=== PATIENT | female | born 1950 | race Hispanic/Latino ===

== ENCOUNTER 2024-06-05 22:45 | Emergency (ER) | payer OTHER ==
[~2024-06-05] VITALS: Ht 152.4 cm; Wt 61.2 kg
[~2024-06-05 22:45] MED LIST: IOHEXOL 350 MG/ML 100ML INFUS..BTL IV ONE; PoTASSium chloRIDE 20MEQ ER 20 MEQ ERTAB PO ONE
[2024-06-05 23:16] VITALS: TEMP 99.1
--- NOTE | 2024-06-05 23:28 | ERN ---
ED Note History of Present Illness Stated Complaint: POST SX INFECTION Chief Complaint: Post-Op Problem Time Seen by MD: 22:52 Dictation: The patient is a 73-year-old female patient with a medical history that includes type 2 diabetes mellitus, hypercholesterolemia, and hypertension presented to the emergency department with complaints of cramping sensations at the surgical site. The patient underwent bladder lift surgery on May 15, 2024, performed by Dr. Lynn at [facility]. Following the procedure, she experienced abdominal pain the subsequent day, and found to have a postoperative hemorrhage requiring a blood transfusion. She was hospitalized for nearly two weeks and was discharged on May 29 with prescriptions for oral amoxicillin and nitrofurantoin. Today, she reported a return of cramping sensations at the surgical site. According to her granddaughter, the wound appeared to be healing; however, it now seems to show signs of infection. The patient denies experiencing abdominal pain, discharge, fever, or chills but does report urinary urgency. Allergies: Coded Allergies: No Known Allergies (Unverified Allergy, Unknown, 06/05/24) Past Medical History Past Medical History: Diabetes-Type II, High Cholesterol, Hypertension Surgical History: Hysterectomy, Review of System Dictation REVIEW OF SYSTEMS CONSTITUTIONAL: Denies fevers, chills, or night sweats. No unintentional weight loss reported. NEUROLOGICAL: Denies headache, amaurosis fugax, motor weakness, sensory deficit, vertigo/spinning sensation, gait abnormalities, or tremors. ENT: No hearing loss, otalgia, otorrhea, rhinitis, rhinorrhea, hoarseness, or sore throat. CARDIOVASCULAR: Denies any exertional angina, dyspnea on exertion, orthopnea, paroxysmal nocturnal dyspnea, palpitations, life-threatening arrhythmias, claudication. PULMONARY: Denies any shortness of breath, cough, phlegm/sputum, hemoptysis, pleuritic chest pain. SLEEP: Denies morning headaches, daytime somnolence or napping. Denies difficulty falling asleep, staying asleep, waking from sleep. Denies knowledge of snoring. GASTROINTESTINAL: Complaints of cramping sensation over the surgical site, Denies any type of dysphagia to either liquids or solids. Denies nausea, vomiting, pyrosis, early satiety, abdominal pain, diarrhea, constipation, or changes in stool consistency or caliber. Denies coffee-ground emesis, hematemesis, hematochezia, or melanotic stools. GENITOURINARY: Denies frequency, urgency, nocturia, hematuria or incontinence (Storage/Irritative symptoms.) Low urinary stream, straining to void, urinary intermittency or hesitancy, splitting of the voiding stream, terminal dribbling. ENDOCRINOLOGIC: Denies polyuria, polydipsia, polyphagia or heat/cold intolerances. HEMATOLOGIC: Denies thrombophilia/previous clots, or coagulopathy/bleeding disorders. ONCOLOGIC: Denies personal history of malignancy. DERMATOLOGIC: Denies rashes or pruritus. PSYCHIATRIC: Denies any suicidal or homicidal ideation. Denies hallucinations. Initial Vital Sign VS Vital Signs Date Time Temp Pulse Resp B/P (MAP) Pulse Ox O2 Delivery O2 Flow Rate FiO2 06/05/24 22:46 99.1 87 18 118/81 98 Room Air 06/05/24 23:16 0 21 Physical Exam Dictation PHYSICAL EXAM GENERAL APPEARANCE: The patient is awake, alert, and oriented, in no acute cardiopulmonary distress. NEUROLOGICAL: Cranial nerves II-XII grossly intact. Motor is 5/5 in bilateral upper and lower extremities proximal to distal. No sensory deficits. HEENT: Face is symmetric. Pupils are equal and reactive. Extraocular movements are intact. NECK: Supple. No JVD. No thyromegaly. No submental, submandibular, pre- /postauricular, occipital or supraclavicular lymphadenopathy. CHEST: Normal chest expansion. No Telemetry. LUNGS: Absence of any rales, rhonchi or any wheezing. CARDIOVASCULAR: Regular. S1 and S2 normal. No appreciable rubs, murmurs or gallops. ABDOMEN: A surgical wound scab is observed beneath the umbilicus, with the surrounding area exhibiting signs of erythema, Soft, and nondistended. There is no rebound, voluntary guarding, or rigidity. : Deferred. No Erwin. EXTREMITIES: Non-edematous and not cyanotic. No clubbing. Good capillary refill. SKIN: No skin breakdown. Results (Laboratory/Radiology) Laboratory/Radiology Laboratory Tests Test 06/05/24 23:15 06/05/24 23:47 06/06/24 01:03 White Blood Count 6.0 K/uL (4.8-10.8) Red Blood Count 3.63 MIL/uL (4.00-5.50) L Hemoglobin 10.9 g/dL (12.0-16.0) L Hematocrit 33.2 % (36-48) L Mean Corpuscular Volume 91.5 fL (79-99) Mean Corpuscular Hemoglobin 30.0 pg (27.0-33.0) Mean Corpuscular Hemoglobin Concent 32.8 g/dL (32.0-36.0) Red Cell Distribution Width 16.5 % (11.0-15.5) H Platelet Count 362 K/uL (130-400) Mean Platelet Volume 8.2 fL (7.5-10.5) Immature Granulocyte % (Auto) 0.5 % (0-1) Neutrophils (%) (Auto) 53.2 % (40.0-77.0) Lymphocytes (%) (Auto) 34.1 % (21.0-51.0) Monocytes (%) (Auto) 8.2 % (3.0-13.0) Eosinophils (%) (Auto) 3.5 % (0.0-8.0) Basophils (%) (Auto) 0.5 % (0.0-5.0) Neutrophils # (Auto) 3.2 K/uL (1.8-7.7) Lymphocytes # (Auto) 2.0 K/uL (1.0-4.8) Monocytes # (Auto) 0.5 K/uL (0.1-1.0) Eosinophils # (Auto) 0.21 K/uL (0.00-0.70) Basophils # (Auto) 0.03 K/uL (0.00-0.20) Absolute Immature Granulocyte (auto 0.03 K/uL (0-1) Nucleated Red Blood Cells 0.0 % (0.0-0.19) Sodium Level 139 mmol/L (136-145) Potassium Level 3.3 mmol/L (3.5-5.1) L Chloride Level 104 mmol/L (101-111) Carbon Dioxide Level 27 mmol/L (21-32) Blood Urea Nitrogen 10 mg/dL (7-18) Creatinine 0.9 mg/dL (0.5-1.0) Glomerular Filtration Rate Calc 67 mL/min (>90) Random Glucose 119 mg/dL (70-105) H Lactic Acid Level 1.9 mmol/L (0.8-2.5) Total Calcium 8.7 mg/dL (8.5-10.1) Total Bilirubin 0.3 mg/dL (0.2-1.0) Direct Bilirubin 0.1 mg/dL (0.0-0.3) Aspartate Amino Transf (AST/SGOT) 61 U/L (10-37) H Alanine Aminotransferase (ALT/SGPT) 55 U/L (12-78) Alkaline Phosphatase 90 U/L (50-136) C-Reactive Protein, Quantitative < 0.50 mg/L (0.5-3.0) L Total Protein 6.3 g/dL (6.0-8.3) Albumin 2.7 g/dL (3.5-5.0) L Erythrocyte Sedimentation Rate 97 MM/HR (0-30) H Urine Color COLORLESS (YELLOW) Urine Appearance CLEAR (CLEAR) Urine pH 5.5 (5.0-8.0) Urine Specific [place] 1.030 (1.001-1.031) Urine Protein NEGATIVE mg/dL (NEGATIVE) Urine Glucose (UA) NEGATIVE mg/dL (NEGATIVE) Urine Ketones NEGATIVE mg/dL (NEGATIVE) Urine Occult Blood MODERATE (NEGATIVE) H Urine Nitrate NEGATIVE (NEGATIVE) Urine Bilirubin NEGATIVE mg/dL (NEGATIVE) Urine Urobilinogen 0.2 mg/dL (0.2-1.0) Urine Leukocyte Esterase 250 Sirisha/uL (NEGATIVE) H Urine RBC 2-5 /HPF (0-1) H Urine WBC 11-25 /HPF (0-1) H Urine Squamous Epithelial Cells RARE /HPF (0-2) Urine Bacteria FEW /HPF (None Seen) CT Scan Comment: [address] [id number] [place] [address] IMAGING REPORT Signed PATIENT: KELSY CANTU MR#: [id number] : 1950 SEX: F AGE: 73 LOCATION: [facility] ORDER 21 STATUS: REG ER REPORT#: [id number] SERVICE 17 REASON: H/o explo laparotomy, Pain over the surgical site ORDERING PHYSICIAN: TAD HERRERA MD PROCEDURE: ABD PEL W - CT ABDOMEN/PELVIS W/CONTRAST CT ABDOMEN/PELVIS W/CONTRAST HISTORY: Pain COMPARISON: None TECHNIQUE: Multiple sequential axial images of the abdomen and pelvis were obtained from the dome of the diaphragm through symphysis pubis. Patient was given 75 cc of Omnipaque through intravenous route. Oral contrast was not given. FINDINGS: No pleural effusion is seen bilaterally. There is no evidence of parenchymal disease or pulmonary nodule of the visualized lower lungs. Degenerative changes of the thoracolumbar spine are present. The heart is not enlarged. The liver measures 15 cm. Gallbladder is distended. 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 There is periumbilical hernia with fat content with fat stranding may be related to incarcerated hernia. There is fluid collection noted in this area measuring 18 x 49 mm may be related to subcutaneous abscess versus seroma. Minimal small bowel dilatation is seen with fluid-filled. There is diverticulosis. Mesenteric fat stranding is seen. Findings may be related to postop changes. The liver, spleen, adrenal glands and pancreas are unremarkable. There is no evidence of hydronephrosis bilaterally. No evidence of renal stone is seen. There are small bilateral renal cysts. Fecal material is seen in the colon. There are normal size retroperitoneal and mesenteric lymph nodes. No ascites is seen. Atherosclerotic changes are present. There is fluid-filled colon. Appendix is not well seen limiting evaluation. Pelvic sidewalls are symmetric bilaterally. Bladder is well distended without wall thickening. IMPRESSION: 1. Gallbladder is distended. 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 There is periumbilical hernia with fat content with fat stranding may be related to incarcerated hernia. There is fluid collection noted in this area measuring 18 x 49 mm may be related to subcutaneous abscess versus seroma. Minimal small bowel dilatation is seen with fluid-filled. There is diverticulosis. Mesenteric fat stranding is seen. Findings may be related to postop changes. CT was performed with one or more following dose reduction techniques: automated exposure control, adjustment of the mA and kv according to patient's size, or use of a iterative reconstruction technique. DICTATED BY: THOMAS WOO MD DATE: 06/06/2452 ELECTRONICALLY SIGNED BY: THOMAS WOO MD DATE: 06/06/2458 ED Course ED Course Orders Procedure Category Date Status Time Cbc With Differential LAB 06/05/24 Complete 23:10 Basic Metabolic Panel LAB 06/05/24 Complete 23:10 Urinalysis Profile LAB 06/05/24 Complete 23:10 Lactic Acid LAB 06/05/24 Complete 23:10 Morphine 2mg Syg PHA 06/05/24 Complete (Morphine 2mg Syg) 23:30 Crp Quantitative LAB 06/05/24 Complete 23:18 Erythrocyte LAB 06/05/24 Complete Sedimentation Rate 23:18 Hepatic Function Panel LAB 06/05/24 Complete 23:18 Ct Abdomen/Pelvis CT 06/05/24 Resulted W/Contrast 23:18 Potassium Chloride PHA 06/06/24 Complete 20meq Er (K-Dur/Klor- 00:30 Iohexol (Omnipaque) PHA 06/06/24 Complete 00:26 Culture Urine ROMY 06/06/24 In Process 01:19 Current Medications Medications (Trade) Dose Ordered Sig/Cristi Route PRN Reason Start Time Stop Time Status Last Admin Dose Admin Iohexol (Omnipaque) 35,000 mg STK-MED ONCE IV 06/06/24 00:26 06/06/24 00:27 DC Morphine Sulfate (morPHINE 2MG SYG) 2 mg ONCE ONCE IVP 06/05/24 23:30 06/05/24 23:31 DC Potassium Chloride (K-Dur/Klor-Con 20meq) 20 meq ONCE ONCE PO 06/06/24 00:30 06/06/24 00:31 DC 06/06/24 00:17 Vital Signs Date Time Temp Pulse Resp B/P (MAP) Pulse Ox O2 Delivery O2 Flow Rate FiO2 06/05/24 23:16 99.1 70 16 139/68 95 Room Air* 0 21 06/05/24 22:46 99.1 87 18 118/81 98 Room Air 11:00 The patient was assessed in the emergency department and presented with signs of mild distress. Her current vital signs are as follows: temperature 99.1F, pulse rate 87 beats per minute, respiratory rate 18 breaths per minute, and blood pressure 118/81 mmHg. During the physical examination, a black scab was observed over the surgical site located below the umbilicus. A small amount of serous discharge was noted from the wound, and the surrounding area exhibited slight erythema. We will proceed with ordering basic laboratory tests and a CT scan of the abdomen to exclude any potential infectious processes. Once the laboratory results and imaging studies are available, we will determine whether the patient requires any emergency interventions or inpatient care. Continuous monitoring of the patient will be maintained. 02:00 Laboratory results did not indicate any notable abnormalities. A CT scan of the abdomen and pelvis revealed a fluid collection in the region measuring 18 x 49 mm, which may be associated with either a subcutaneous abscess or a seroma. Considering the clinical observations, it is our assessment that the patient may be experiencing a serous collection, likely a postoperative change. The patient has been prescribed Augmentin to mitigate the risk of infection, and nitrofurantoin has been recommended for a urinary tract infection. She has been advised to complete the full course of antibiotics. An appointment with Dr. Lynn is scheduled for tomorrow. At this juncture, we do not believe that the patient necessitates emergency intervention or inpatient care. The patient is deemed fit for discharge to her home. Medical Decision Making [facility] Differential diagnosis: Seroma, post operative, Urinary tract infection Rationale: Tests considered and ordered secondary to shared decision making include: Previous outside records reviewed: Old ER visits. Risk of complication and/or morbidity or mortality of patient management: None Medications-Per medication reconciliation Need for hospitalization: Patient does not meet criteria for hospitalization. Need for emergency major/minor surgery: No There are no social concerns with this patient. Prescription drug management Prescriptions will include symptomatic care Patient's prior external medical records from other ER visits were reviewed by me as indicated. Prior testing and results from previous visits were reviewed. Prior tests were taken into account with medical decision making and resource utilization, independent historian/historians were used to obtain complete medical history. I independently interpreted the test that were performed, results were reviewed by me and considered findings on radiology if ordered. DX & DISP Disposition: Discharge Departure Impression: Primary Impression: Seroma, postoperative Additional Impression: UTI (urinary tract infection) Condition: Stable Additional Instructions: Continue taking Augmentin as prescribed by your medical provider. Continue taking Nitrofurantoin for UTI as directed. Drink fluids: Drink lots of water to dilute your urine and flush out bacteria. Avoid drinks that contain caffeine or citrus juices, which can irritate the bladder. Urinate often: Try to empty your bladder each time you feel the urge. Visit the nearest emergency department or call 911 should the symptoms get worse or reappears. Referrals: NONE (PCP) I have reviewed the case, and I agree with, Diagnosis and Plan I have examined patient, & reviewed all documents, & agreed W/ the Diagnosis, and Plan I performed a substantive portion of the visit. I have reviewed and personally made and approve the management plan that is documented in the notes by myself with BERNARDINO/resident. I acknowledged full responsibility for the patient's management plan. TAD HERRERA MD Jun 05, 2024 23:28 ELLEN FRENCH DO Jun 06, 2024 02:21
[2024-06-05 23:47] LABS: BASOPHILS # (AUTO) 0.03 K/uL (0.00-0.20); BASOPHILS % (AUTO) 0.5 % (0.0-5.0); EOSINOPHILS # (AUTO) 0.21 K/uL (0.00-0.70); EOSINOPHILS % (AUTO) 3.5 % (0.0-8.0); HEMATOCRIT 33.2 % (36-48); IMMATURE GRANULOCYTE ABSOLUTE 0.03 K/uL (0-1); LYMPHOCYTES % (AUTO) 34.1 % (21.0-51.0); MEAN CORPUSCULAR HGB CONC 32.8 g/dL (32.0-36.0); MEAN CORPUSCULAR VOLUME 91.5 fL (79-99); MONOCYTES # (AUTO) 0.5 K/uL (0.1-1.0); MONOCYTES % (AUTO) 8.2 % (3.0-13.0); NEUTROPHILS # (AUTO) 3.2 K/uL (1.8-7.7); NEUTROPHILS % (AUTO) 53.2 % (40.0-77.0); PLATELET COUNT (AUTO) 362 K/uL (130-400); RED BLOOD CELL COUNT(AUTO) 3.63 MIL/uL (4.00-5.50); RED CELL DISTRIBUTION WIDTH 16.5 % (11.0-15.5)
[2024-06-05 23:58] LABS: CREATININE 0.9 mg/dL (0.5-1.0); POTASSIUM 3.3 mmol/L (3.5-5.1)
[2024-06-06 00:04] LABS: ALANINE AMINOTRANSFERASE 55 U/L (12-78); ALBUMIN 2.7 g/dL (3.5-5.0); ASPARTATE AMINOTRANSFERASE 61 U/L (10-37); BILIRUBIN,DIRECT 0.1 mg/dL (0.0-0.3); BILIRUBIN,TOTAL 0.3 mg/dL (0.2-1.0); TOTAL PROTEIN, SERUM 6.3 g/dL (6.0-8.3)
[2024-06-06] MEDS: PoTASSium chloRIDE 20MEQ ER 20 MEQ ERTAB PO ONE (00:17)
[2024-06-06] MEDS ORDERED: IOHEXOL 350 MG/ML 100ML INFUS..BTL IV ONE (00:26)
--- NOTE | 2024-06-06 00:59 | HMCIMG ---
CT ABDOMEN/PELVIS W/CONTRAST HISTORY: Pain COMPARISON: None TECHNIQUE: Multiple sequential axial images of the abdomen and pelvis were obtained from the dome of the diaphragm through symphysis pubis. Patient was given 75 cc of Omnipaque through intravenous route. Oral contrast was not given. FINDINGS: No pleural effusion is seen bilaterally. There is no evidence of parenchymal disease or pulmonary nodule of the visualized lower lungs. Degenerative changes of the thoracolumbar spine are present. The heart is not enlarged. The liver measures 15 cm. Gallbladder is distended. 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 There is periumbilical hernia with fat content with fat stranding may be related to incarcerated hernia. There is fluid collection noted in this area measuring 18 x 49 mm may be related to subcutaneous abscess versus seroma. Minimal small bowel dilatation is seen with fluid-filled. There is diverticulosis. Mesenteric fat stranding is seen. Findings may be related to postop changes. The liver, spleen, adrenal glands and pancreas are unremarkable. There is no evidence of hydronephrosis bilaterally. No evidence of renal stone is seen. There are small bilateral renal cysts. Fecal material is seen in the colon. There are normal size retroperitoneal and mesenteric lymph nodes. No ascites is seen. Atherosclerotic changes are present. There is fluid-filled colon. Appendix is not well seen limiting evaluation. Pelvic sidewalls are symmetric bilaterally. Bladder is well distended without wall thickening. IMPRESSION: 1. Gallbladder is distended. 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 There is periumbilical hernia with fat content with fat stranding may be related to incarcerated hernia. There is fluid collection noted in this area measuring 18 x 49 mm may be related to subcutaneous abscess versus seroma. Minimal small bowel dilatation is seen with fluid-filled. There is diverticulosis. Mesenteric fat stranding is seen. Findings may be related to postop changes. CT was performed with one or more following dose reduction techniques: automated exposure control, adjustment of the mA and kv according to patient's size, or use of a iterative reconstruction technique.
[2024-06-06 01:14] LABS: APPEARANCE,URINE CLEAR (CLEAR); BILIRUBIN,URINE NEGATIVE (NEGATIVE); COLOR,URINE COLORLESS (YELLOW); GLUCOSE, URINE (UA) NEGATIVE (NEGATIVE); KETONES,URINE NEGATIVE (NEGATIVE); LEUKOCYTE ESTERASE ,URINE 250 Leu/uL (NEGATIVE); NITRATE,URINE NEGATIVE (NEGATIVE); OCCULT BLOOD,URINE MODERATE (NEGATIVE); PH,URINE 5.5 (5.0-8.0); PROTEIN,URINE NEGATIVE (NEGATIVE); UROBILINOGEN,URINE 0.2 mg/dL (0.2-1.0)
[2024-06-06] MEDS: morPHINE 2 MG SYG IVP ONE (01:14)
[2024-06-06 01:19] LABS: ADD UA MICROSCOPIC YES
[2024-06-06 01:23] LABS: BACTERIA,URINE FEW /HPF (None Seen); MUCUS,URINE RARE LPF (None Seen); SQUAMOUS EPITHELIAL CELL,UR RARE /HPF (0-2)
[2024-06-06 02:46] VITALS: BP 117/77; PULSE 74; RESP 16; O2SAT 98
== END 2024-06-06 03:06 | disposition home or self-care (01) ==
LOC: EDH 22:45
DX: N99.843 Postprocedural seroma of a genitourinary system organ or structure following other procedure (principal); N39.0 Urinary tract infection, site not specified; E11.9 Type 2 diabetes mellitus without complications; E78.00 Pure hypercholesterolemia, unspecified; I10 Essential (primary) hypertension; K42.9 Umbilical hernia without obstruction or gangrene; Z90.710 Acquired absence of both cervix and uterus
CPT/HCPCS: 99285; 74177; 80076; 80048; 85025; 85651; 87086; 83605; 86140; 81001; 36415; Q9967; J2270